=== PATIENT | female | born 1985 | race Caucasian/White ===

== ENCOUNTER 2019-06-09 09:31 | Inpatient (IN) | payer SELFPAY ==
[~2019-06-09] VITALS: Ht 154.9 cm; Wt 90.5 kg
[2019-06-09] VITALS (8 sets, daily range): BP systolic 108–119; BP diastolic 61–67
[2019-06-09] MEDS ORDERED: LR 1,000 ML IV SCH (10:30)
[2019-06-09] MEDS ORDERED: LR 800 ML IV ONE (10:30)
[2019-06-09 11:13] LABS: BASO % 0.2 % (0.0-1.0); EOS # 0.1 10^3/uL (0.0-0.5); EOS % 1.5 % (0.0-3.0); HEMATOCRIT 36.8 % (36.0-47.0); HEMOGLOBIN 12.2 g/dl (12.0-15.5); LYMPH # 1.7 10^3/uL (1.5-5.0); LYMPH % 18.7 % (24.0-44.0); MEAN CORPUSCULAR HGB CONC 33.2 g/dl (32.0-36.5); MEAN CORPUSCULAR VOLUME 93.6 fl (80.0-96.0); MONO # 0.7 10^3/uL (0.0-0.8); MONO % 7.3 % (0.0-5.0); NEUTROPHILS # 6.5 10^3/uL (1.5-8.5); NEUTROPHILS % 71.8 % (36.0-66.0); PLATELET COUNT, AUTOMATED 157 10^3/uL (150-450); RED BLOOD COUNT 3.93 10^6/uL (4.00-5.40); WHITE BLOOD COUNT 9.1 10^3/uL (4.0-10.0)
[2019-06-09 11:15] LABS: APPEARANCE, URINE CLOUDY (CLEAR); BACTERIA, URINE AUTO 2+ (NEGATIVE); BILIRUBIN, URINE AUTO NEGATIVE (NEGATIVE); BLOOD, URINE BLOOD NEGATIVE (NEGATIVE); COLOR, URINE YELLOW (YELLOW); GLUCOSE, URINE (UA) AUTO NEGATIVE (NEGATIVE); KETONE, URINE AUTO TRACE mg/dL (NEGATIVE); LEUKOCYTE ESTERASE, URINE AUTO NEGATIVE (NEGATIVE); MUCUS, URINE SMALL (NEGATIVE); NITRITE, URINE AUTO NEGATIVE (NEGATIVE); PROTEIN, URINE AUTO NEGATIVE (NEGATIVE); RBC, URINE AUTO 1 /HPF (0-3); SPECIFIC GRAVITY URINE AUTO 1.003 (1.002-1.035); SQUAMOUS EPITHELIAL CELL UR AU 4 /HPF (0-6); UROBILINOGEN, URINE AUTO 0.2 mg/dL (0.0-2.0); WBC, URINE AUTO 2 /HPF (0-3)
[2019-06-09] MEDS ORDERED: BICITRA 30ML SOLN UDC As Ordered ONE (12:31)
[2019-06-09] MEDS ORDERED: ceFAZolin 2 GM/D5W 50 ML IV BAG (J0690 PER 500MG) As Ordered ONE (12:31)
--- NOTE | 2019-06-09 12:55 | REP ---
Obstetric sonography: Multiple gestation. History: 39.3 week twins, need presentation, MENDEZ, and estimated weights. Sonographic findings: Twin intrauterine gestation is seen. A right lateral and anterior placenta is seen grade 1, no evidence of previa or abruption. Twin A is breech in lie along maternal left and twin B is cephalic and located along the maternal right. Amniotic fluid is subjectively normal. Umbilical cord is seen draping across shoulders of twin B. The following anatomic structures are identified in fetus A and are felt to be unremarkable: cranium, choroid plexus, cavum, diaphragm, left-sided stomach, abdominal wall cord insertion, three-vessel cord, kidneys and bladder, spine. The following anatomic structures in fetus B are identified and felt to be unremarkable: cranium, choroid plexus, cavum, diaphragm, left-sided stomach, abdominal wall cord insertion, three-vessel cord, kidneys and bladder, spine. Biometry chart fetus A: BPD 8.8 cm = 35 weeks 4 days Head circumference 32.0 cm = 36 weeks 1 day Abdominal circumference 30.2 cm = 34 weeks 1 day Femur length 7.1 cm = 36 weeks 2 days Humeral length 6.1 cm = 35 weeks 0 days HC/AC ratio normal 1.06. Cephalic index normal 0.77. Estimated weight 2589 grams, 5 pounds 11 ounces, less than 3rd percentile. heart rate 120 beats per minute. MENDEZ 12.9 cm. S/D ratio 4.21. Biometry chart fetus B: BPD 9.0 cm = 36 weeks 4 days Head circumference 32.3 cm = 36 weeks 4 days Abdominal circumference 31.0 cm = 35 weeks 0 days Femur length 6.9 cm = 35 weeks 3 days Humeral length 5.9 cm = 34 weeks 1 day HC/AC ratio normal 1.04. Cephalic index normal 0.79. Estimated weight 2673 grams, 5 pounds 14 ounces, 5th percentile. heart rate 153 beats per minute. S/D ratio 2.45. Impression: Viable twin intrauterine gestation. 39 weeks 3 days by patient's stated HORACE of June 13, 2019. S/D ratio slightly elevated for twin A. Estimated weights less than 3rd for fetus A and 5th percentile for fetus B. Amniotic fluid is subjectively normal. Electronically Signed by Azael Delacruz MD 06/09/2019 04:56 P
[2019-06-09] MEDS ORDERED: OXYTOCIN 30 UNITS IN 0.9% NaCl 500ML IV BAG (J2590) As Ordered ONE (13:15)
[2019-06-09 13:25] LABS: HIV 1&2 SCREEN CENTAUR NEGATIVE (NEGATIVE)
[2019-06-09 13:55] LABS: CORD GAS ABE V -2.2; CORD GAS HCO3 V 19.9 MEQ/L; CORD GAS O2 SAT V 90.4 %; CORD GAS PCO2 V 29.2 mmHg; CORD GAS PH V 7.451 UNITS; CORD GAS PO2 V 41.9 mmHg; CORD GAS SBC V 22.5 MEQ/L; CORD GAS TCO2 V 20.8 MEQ/L
[2019-06-09 13:57] LABS: CORD GAS HCO3 A 20.9 MEQ/L; CORD GAS O2 SAT A 79.6 %; CORD GAS PCO2 A 41.9 mmHg; CORD GAS PH A 7.316 UNITS; CORD GAS PO2 A 35.6 mmHg; CORD GAS SBC A 19.9 MEQ/L; CORD GAS TCO2 A 22.2 MEQ/L
[2019-06-09] MEDS ORDERED: DIBUCAINE 1% OINTMENT 30GM TOP PRN (14:00)
[2019-06-09] MEDS ORDERED: METHYLERGONOVINE MALEATE 0.2 MG TAB PO PRN (14:00)
[2019-06-09] MEDS ORDERED: IBUPROFEN 600 MG TAB PO PRN (14:00)
[2019-06-09] MEDS ORDERED: MEASLES,MUMPS,RUBELLA VACCINE INJ (MMR-II) (90707) SC SCH (14:00)
[2019-06-09] MEDS ORDERED: OXYTOCIN DRIP 30 UNITS in IV 1 EA IV SCH (14:00)
[2019-06-09] MEDS ORDERED: RHOGAM 300 MCG (1500 IU) INJ (J2790) IM SCH (14:00)
[2019-06-09] MEDS ORDERED: ACETAMINOPHEN TAB 650MG DOSE (2X325MG) PO PRN (14:00)
[2019-06-09] MEDS ORDERED: IBUPROFEN 800 MG TAB PO PRN (14:00)
[2019-06-09] MEDS ORDERED: ACETAMINOPHEN 500 MG TAB PO PRN (14:00)
[2019-06-09] MEDS ORDERED: DOCUSATE SODIUM 100 MG CAP PO PRN (14:00)
[2019-06-09 14:01] LABS: CORD GAS ABE A -5.9; CORD GAS O2 SAT A 44.1 %; CORD GAS PCO2 A 41.1 mmHg; CORD GAS PH A 7.306 UNITS; CORD GAS SBC A 18.6 MEQ/L; CORD GAS TCO2 A 21.3 MEQ/L
[2019-06-09 14:03] LABS: CORD GAS PCO2 V 31.2 mmHg; CORD GAS PH V 7.379 UNITS; CORD GAS PO2 V 38.5 mmHg; CORD GAS SBC V 19.3 MEQ/L
--- NOTE | 2019-06-09 19:53 | HPE ---
DATE OF ADMISSION: 06/09/2019 Marisela is a 34-year-old female, 9, para 8-0-0-8, Ralf lady with no formal care, twin gestation, who by last menstrual period is 39 weeks, presented in active labor. Upon evaluation she was found to be 8 cm dilated and had spontaneous rupture of membrane, clear fluid of twin A. Twin A was footling breech while twin B was found to be confirmed as vertex position but in the oblique position. Given that the patient was in active labor and with breech presentation, we did discuss the options including section or delivery via breech extraction, potential section. Both the patient and her partner agrees to proceed with delivery via breech extraction. PAST MEDICAL HISTORY: Denies. PAST SURGICAL HISTORY: Denies. SOCIAL HISTORY: She is a , Ralf lady. Denies any alcohol or drug use. She is not on any current medications. ALLERGIES: She denies any allergies. PHYSICAL EXAMINATION: Obese female in no acute distress. Abdomen: Soft, gravid, nontender, nondistended. Extremities: No clubbing, cyanosis or edema. Vaginal exam: 8 cm, grossly ruptured. Clear fluid. With double footling breech and a confirmed oblique bifid fetus. Tracing reviewed. Category one tracing. ASSESSMENT: Twin gestation, dichorionic-diamniotic, with gross rupture of membrane of twin A and double footling presentation, in active labor. PLAN: The patient admitted to labor and delivery. The patient counseled extensively as well as her family on the possibilities of delivery via breech extraction or delivery via section. The patient and her partner agrees to proceed with delivery via breech extraction. She was then taken to the operating room for that delivery with a double setup.
--- NOTE | 2019-06-09 20:25 | DN ---
DATE: 06/09/2019 Marisela is a 34-year-old female, 9, para 8-0-0-8, Ralf lady, twin gestation, who presented in active labor with spontaneous rupture of membranes of twin A, was also found to be in footling breech. After an extensive counseling and patient becoming fully dilated, decision was made to take the patient to the OR with a double setup for delivery of a breech extraction and vaginal delivery of the second twin. While in the OR under a double setup with anesthesia and the OR staff present, the patient pushed, delivered the foot and anterior and posterior shoulders as well as the head. At this point the cord was clamped and cut and baby was handed to the veterinarian laboratory animal care. scores of twin 9 and 9, weight 5 pounds 2 ounces. Cord blood and cord gas were sent. Bedside ultrasound done with the second twin, confirm oblique. With gentle guidance the head was brought down to the pelvis. Left hand presentation was noted. The patient started on Pitocin to help increase contractions. She then brought down the head. Artificial rupture of membranes was done, clear fluid noted, and she then pushed and delivered the second twin, a live female with a compound left hand. Infant was delivered in atraumatic fashion. Cord doubly clamped and cut and infant was handed over to the waiting veterinarian laboratory animal care. scores 9 and 9, weight 5 pounds 10 ounces. Cord blood and cord gas was sent. At this point, both placentas were delivered spontaneously intact. Manual inspection of the uterus was done. Pitocin started. Good hemostasis noted. No evidence of any laceration. Both mother and babies in stable condition. Estimated blood loss 350 mL.
[2019-06-10 06:00] VITALS: BP 118/73
[2019-06-10] MEDS ORDERED: PRENATAL VITAMINS CHEWABLE TABLET PO SCH (09:00)
[2019-06-10 10:46] LABS: HEPATITIS C VIRUS ABY INDEX < 0.0 INDEX (<0.8); RUBELLA IgG QUALITATIVE IMMUNE (IMMUNE)
== END 2019-06-10 10:45 | disposition home or self-care (01) | DRG 560 ==
LOC: M LDO 09:31 → M LDI 12:30 → M OBS 17:11
PROVIDERS: ADMIT Obstetrics & Gynecology; ATTEND Obstetrics & Gynecology
PROC: 10E0XZZ Delivery of Products of Conception, External Approach (ICD-10-PCS; principal; 2019-06-09)
PROC: 10907ZC Drainage of Amniotic Fluid, Therapeutic from Products of Conception, Via Natural or Artificial Opening (ICD-10-PCS; 2019-06-09)
DX: O32.8XX1 Maternal care for other malpresentation of fetus, fetus 1 (principal); Z37.2 Twins, both liveborn; Z3A.39 39 weeks gestation of pregnancy; O30.043 Twin pregnancy, dichorionic/diamniotic, third trimester; O32.6XX0 Maternal care for compound presentation, not applicable or unspecified